=== PATIENT | male | born 1995 | race African-American/Black ===

== ENCOUNTER 2017-09-15 21:23 | Emergency (ER) | payer OTHER ==
[~2017-09-15] VITALS: Ht 152.4 cm; Wt 78.9 kg
[2017-09-15 21:38] VITALS: BP 138/77
== END 2017-09-15 22:07 | disposition home or self-care (01) ==
LOC: ED 22:00
DX: J45.31 Mild persistent asthma with (acute) exacerbation (principal); J45.21 Mild intermittent asthma with (acute) exacerbation
CPT/HCPCS: 71046; 99284